=== PATIENT | female | born 1995 | race Two or more races ===

== ENCOUNTER 2023-03-15 19:13 | Emergency (ER) | payer MEDICAID, OTHER ==
[~2023-03-15] VITALS: Ht 162.6 cm; Wt 85.0 kg
[2023-03-15 23:50] VITALS: BP 106/67; PULSE 80; RESP 16; TEMP 98.2; O2SAT 99
== END 2023-03-15 23:58 | disposition home or self-care (01) ==
LOC: ER 19:13
DX: M94.0 Chondrocostal junction syndrome [Tietze] (principal); R07.89 Other chest pain
CPT/HCPCS: 71045